=== PATIENT | female | born 1980 | race Caucasian/White ===

== ENCOUNTER 2016-10-24 12:41 | Observation (INO) ==
[2016-10-24] MEDS ORDERED: Naloxone 0.4 MG/ML INJ IVP PRN (14:19)
[2016-10-24] MEDS ORDERED: 0.9 % Sodium Chloride 1,000 ML IVC ONE (14:30)
[2016-10-24] MEDS ORDERED: Pantoprazole 80 MG in 0.9 % Sodium Chloride 50 ML IVPB ONE (14:37)
[2016-10-24] MEDS ORDERED: Pantoprazole 40 MG in 0.9 % Sodium Chloride Mini Bag 100 ML IVC SCH (14:45)
[2016-10-24 14:58] LABS: Basophils % 0.2 %; Eosinophils # 0.1 K/mcL (0.0-0.6); Eosinophils % 1.9 %; Hematocrit 20.5 % (35.3-44.9); Immature Granulocytes % 0.2 % (0-4); Lymphocytes # 2.1 K/mcL (0.6-4.6); Mean Corpuscular HGB Conc 30.2 g/dL (31.6-35.5); Mean Corpuscular Hemoglobin 22.9 pg (28.0-33.3); Mean Corpuscular Volume 75.6 fL (83.0-100.0); Mean Platelet Volume 10.6 fL (9.4-12.4); Monocytes # 0.3 K/mcL (0.0-1.3); Monocytes % 5.8 %; Neutrophils # 3.3 K/mcL (1.6-8.9); Platelet Count 234 K/mcL (140-400); Red Blood Count 2.71 M/mcL (3.82-4.97); Red Cell Distribution Width 17.3 % (11.5-14.5); Segmented Neutrophils % 55.9 %
[2016-10-24 15:01] LABS: Hemoglobin 6.2 g/dL (11.5-15.4)
[2016-10-24] MEDS ORDERED: Ondansetron 4 MG/2 ML VIAL IVP PRN ×2 (15:07→15:51)
[2016-10-24 15:15] LABS: Alanine Aminotransferase 13 Units/L (0-55); Albumin 2.8 g/dL (3.5-5.0); Albumin/Globulin Ratio 1.1 (1.1-2.2); Alkaline Phosphatase 85 Units/L (38-126); Aspartate Amino Transferase 18 Units/L (5-34); BUN/Creatinine Ratio 32 (6-26); Bilirubin,Total 0.1 mg/dL (0.2-1.2); Blood Urea Nitrogen 20 mg/dL (7-20); Calcium 8.1 mg/dL (8.6-10.8); Carbon Dioxide 26 mEq/L (19-29); Chloride 107 mEq/L (98-109); Cholesterol 116 mg/dL (< 200); Globulin 2.6 g/dL (2.4-3.5); Glucose 72 mg/dL (70-99); HDL Cholesterol 39 mg/dL (40-59); LDL Cholesterol,Calculated 69 mg/dL (0-99); Magnesium 2.1 mg/dL (1.6-2.6); Osmolality,Calculated 289 (280-300); Sodium 139 mEq/L (136-145); Total Protein 5.4 g/dL (6.0-8.3); Triglycerides 39 mg/dL (< 150); eGFR For African Americans > 60 (> 60); eGFR For Non-African Americans > 60 (> 60)
[2016-10-24] MEDS: Pantoprazole 40 MG in 0.9 % Sodium Chloride Mini Bag 100 ML IVC SCH ×2 (15:59→20:58)
[2016-10-24] MEDS ORDERED: SODIUM CHLORIDE/NAHCO3/KCL/PEG 4,000 ML SOLN.RECON PO ONE (16:13)
[2016-10-24] MEDS ORDERED: Polyethylene Glycol 3350 255 GM POWDER PO PRN (16:14)
[2016-10-24] MEDS: 0.9 % Sodium Chloride 1,000 ML IVC SCH (16:56)
[2016-10-24] MEDS ORDERED: 0.9 % Sodium Chloride 250 ML ONE (18:00)
--- NOTE | 2016-10-24 21:36 | Internal Med History&Physical ---
Date of Encounter: 10/25/16 Time of Encounter: 12:30 Assessment and Plan (1) GI bleed Current visit: Yes Status: Acute Assess: Patient presents with anemia, reports of dizziness/syncopal episodes, Hgb of 7.8 , Hct of 25.9, abdominal pain, and reports of dark blood in stools and toilet for the past week. Hgb 6.2 towards evening. Plan: GI consult ordered and confirmed Clear liquid diet ordered NPO after midnight for a.m. testing GOLYTELY 4,000 bowel prep ordered pre-testing Miralax/Gatorade bowel prep ordered PRN if patient cannot tolerate GOLYTELY protocol Rectal enema PRN if rectal effusion not clear I unit of RBCs ordered Monitor patient Continuous cardiac monitoring ordered EKG ordered Monitor vital signs Falls precautions due to dizziness/syncope Qualifiers: GI bleed type/associated pathology: unspecified gastrointestinal hemorrhage type Qualified Code(s): K92.2 - Gastrointestinal hemorrhage, unspecified (2) Anemia Current visit: Yes Status: Acute Assess: Patient presents with anemia, reports of dizziness/syncopal episodes, Hgb of 7.8 , Hct of 25.9, abdominal pain, and reports of dark blood in stools and toilet for the past week. Hgb 6.2 towards evening. Source of bleeding TBD through EGD and colonoscopy. Plan: GI consult ordered and confirmed I unit of RBCs ordered Monitor patient Continuous cardiac monitoring ordered EKG ordered Monitor vital signs Falls precautions ordered due to dizziness/syncope Qualifiers: Anemia type: iron deficiency Iron deficiency anemia type: unspecified iron deficiency Qualified Code(s): D50.9 - Iron deficiency anemia, unspecified (3) Hematochezia Current visit: Yes Status: Acute Assess: Patient presents with reports of dark blood in stools and toilet for the past week. Suspected GI bleed due to low Hgb (6.2) and Hct (25.9). Plan: GI consult ordered and confirmed Clear liquid diet ordered NPO after midnight for a.m. testing GOLYTELY 4,000 bowel prep ordered pre-testing Miralax/Gatorade bowel prep ordered PRN if patient cannot tolerate GOLYTELY protocol Rectal enema PRN if rectal effusion not clear I unit of RBCs ordered Patient to undergo EGD and colonoscopy in a.m. (10/25/16) Monitor patient Continuous cardiac monitoring ordered Monitor vital signs (4) Suicidal ideation Current visit: Yes Status: Acute Assess: Patient presents from psychiatric unit today with suicidal ideations and auditory hallucinations. Plan: Sitter ordered Psych to follow patient Suicide protocol per unit Monitor patient's affect, mood Monitor vital signs (5) Acute psychosis Current visit: Yes Status: Acute Assess: Patient presents from psychiatric unit today with suicidal ideations, homicidal ideations, and auditory hallucinations. Plan: Sitter ordered Psych to follow patient Monitor patient's affect, mood Monitor vital signs Monitor sleep Monitor appetite (6) DVT prophylaxis Current visit: Yes Status: Acute Assess: Patient placed on DVT prophylaxis due to current inpatient status, history of anemia, abnormal EKG (arrhythmia) and episodes of dizziness/syncope Plan: SCD pumps ordered EKG ordered Continuous cardiac monitoring Monitor vital signs Internal Medicine - H&P: HPI Chief complaint: GI bleed Admitted From: Intrahospital Transfer Plans for Post Hospital Care: Home History of present illness: Ms. Long is a 36 year old female who was being seen in the psychiatric unit for suicidal ideations, auditory hallucinations, and psychosis. Patient's lab results showed a Hgb of 7.8 and Hct of 25.9. When assessed, patient reported that she has been experiencing episodes of dizziness and syncope, pain in her epigastric area for the past month, and dark blood in her stool for the past week. Patient was admitted to med/surg for GI bleed work-up. GI consult ordered and confirmed with Dr. Pierre who requested patient be placed on clear liquids and then NPO after midnight with bowel prep to be completed for a.m. testing ( EGD and colonoscopy). Continuoius cardiac monitoring ordered. Hgb and Hct ordered q6. Patient's Hgb was 8.7 on 10/23 and is now 6.2 on 10/24. Patient to receive one unit of blood. IV Protonix and bolus ordered as well. Past Med Surg Social Fam HX - Past Medical History Medical history: cancer (Cervical), other Psychiatric history: no psych history - Past Surgical History Surgical History: hysterectomy, other (Oophorectomy) - Social History Smoking Status: Current every day smoker Smokeless Tobacco Status: No Alcohol use: none Drug use: cocaine, marijuana - Family History Mother Race: Family Member Ethnicity: Non- Living Status: Still Living Hx Family Cancer: Yes Father History Unknown: Yes Sister Race: Family Member Ethnicity: Non- Living Status: Still Living Hx Family Medical Disorders: No Brother Race: Family Member Ethnicity: Non- Living Status: Still Living Hx Family Medical Disorders: No Internal Medicine - H&P: Meds No Known Home Drugs 10/22/16 [History] Allergies Sulfa (Sulfonamide Antibiotics) Allergy (Mild, Verified 10/22/16 01:33) Anaphylaxis aspirin [ASA] Allergy (Verified 10/23/16 16:25) Rash ibuprofen Allergy (Verified 10/23/16 16:25) Rash Penicillins Allergy (Verified 10/22/16 01:33) Anaphylaxis tetanus toxoid, adsorbed Allergy (Verified 10/23/16 16:25) Rash tramadol Allergy (Verified 10/23/16 16:25) Rash trazodone Allergy (Verified 10/23/16 16:25) Rash All Systems PM: A 10-system review of systems was performed and is negative for pertinent findings except as documented above in the HPI. - Constitutional Constitutional: no chills, no fever(s), no night sweats - EENT Eyes: no change in vision, no discharge, no pain, no photophobia Ears: no ear discharge, no ear pain, no tinnitus Nose, mouth and throat: no dysphagia, no nasal discharge, no neck pain, no sore throat - Breasts Breasts: as per HPI - Cardiovascular Cardiovascular ROS IM: as per HPI, lightheadedness, syncope, no chest pain, no diaphoresis, no dyspnea, no palpitations - Respiratory Respiratory: no cough, no dyspnea, no wheezing, no excessive phlegm production - Gastrointestinal Gastrointestinal: as per HPI, abdominal pain, hematochezia - Genitourinary Genitourinary: as per HPI Additional comments: Patient reports no menstrual periods due to hysterectomy. Total hysterectomy and oophorectomy performed due to cervical cancer diagnosis. Menstruation: post hysterectomy Additional comments: Patient reports no menstrual periods due to hysterectomy. Total hysterectomy and oophorectomy performed due to cervical cancer diagnosis. - Musculoskeletal Musculoskeletal ROS IM: no numbness, no tingling - Integumentary Integumentary IM: no rash, no unusual bruising - Neurological Neurological ROS: as per HPI, dizziness Additional comments: Patient reports episodes of dizziness and syncope. - Psychiatric Psychiatric: as per HPI, auditory hallucinations, behavioral changes, suicidal ideation - Endocrine Endocrine IM: as per HPI - Hematologic/Lymphatic Hematologic/Lymphatic: as per HPI, no easy bruising - Allergic/Immunologic Allergic/Immunologic: as per HPI - Constitutional Vitals: Temp Pulse Resp BP Pulse Ox 98.3 F 60 16 90/52 100 10/24/16 18:56 10/24/16 18:56 10/24/16 18:56 10/24/16 18:56 10/24/16 18:41 General appearance: Present: cooperative, A&O X 3, pleasant, answers questions appropriately - Head Head exam: Present: atraumatic, normocephalic - Eye Eye exam: Present: PERRL, conjuntiva pink, sclera anicteric Pupils: Present: PERRL - ENT ENT exam: Present: normal exam - Neck Neck exam general surgery: Present: supple, trachea midline. Absent: lymphadenopathy - Respiratory Respiratory exam: Present: CTAB. Absent: accessory muscle use, rales, rhonchi, wheezes - Cardiovascular Cardiovascular exam: Present: RRR, +S1, +S2. Absent: diastolic murmur, gallop, rubs, systolic murmur - GI/Abdominal GI/Abdominal exam: Present: normal bowel sounds - Rectal Rectal exam: Present: deferred - Additional comments: exam deferred. - Extremities Exam Extremities exam: Present: warm, radial pulses palpable and symetrical. Absent : calf tenderness, cyanotic, pedal edema - Back Exam Back exam: Present: normal inspection - Neurological Exam Neurological exam: Present: alert, oriented X3, no focal deficits - Psychiatric Psychiatric exam: Present: normal affect, normal mood - Skin Skin exam: Present: dry, intact Internal Med - H&P Results - Labs CBC & Chem 7: 10/25/16 06:31 10/25/16 06:31 Labs: Short CBC 10/24/16 Range/Units 14:34 WBC 5.9 (4.3-11.1) K/mcL Hgb 6.2 L D (11.5-15.4) g/dL Hct 20.5 L (35.3-44.9) % Plt Count 234 (140-400) K/mcL Neutrophils # 3.3 (1.6-8.9) K/mcL BMP 10/24/16 14:34 Sodium 139 Potassium 4.0 Chloride 107 Carbon Dioxide 26 BUN 20 Creatinine 0.62 Glucose 72 Calcium 8.1 L Liver Function 10/24/16 Range/Units 14:34 Total Bilirubin 0.1 L (0.2-1.2) mg/dL AST 18 (5-34) Units/L ALT 13 (0-55) Units/L Alkaline Phosphatase 85 (38-126) Units/L Albumin 2.8 L (3.5-5.0) g/dL - EKG Data EKG shows normal: sinus rhythm (with sinus arrhythmia) - VTE Reasons for not Prescribing Prophylaxis: Medical contraindication
[2016-10-24 22:48] LABS: Hematocrit 25.1 % (35.3-44.9)
[2016-10-24 22:52] LABS: Hemoglobin 7.8 g/dL (11.5-15.4)
[2016-10-25] MEDS: Pantoprazole 40 MG in 0.9 % Sodium Chloride Mini Bag 100 ML IVC SCH ×3 (02:00→13:07)
[2016-10-25 06:39] LABS: Basophils % 0.2 %; Eosinophils # 0.1 K/mcL (0.0-0.6); Eosinophils % 2.3 %; Hemoglobin 8.1 g/dL (11.5-15.4); Immature Granulocytes % 0.2 % (0-4); Lymphocytes % 41.4 %; Mean Corpuscular HGB Conc 31.2 g/dL (31.6-35.5); Mean Corpuscular Hemoglobin 24.5 pg (28.0-33.3); Mean Corpuscular Volume 78.5 fL (83.0-100.0); Mean Platelet Volume 10.3 fL (9.4-12.4); Monocytes # 0.3 K/mcL (0.0-1.3); Monocytes % 6.8 %; Neutrophils # 2.3 K/mcL (1.6-8.9); Platelet Count 244 K/mcL (140-400); Red Blood Count 3.31 M/mcL (3.82-4.97); Red Cell Distribution Width 16.7 % (11.5-14.5); Segmented Neutrophils % 49.1 %
[2016-10-25 06:42] LABS: INR 1.1
[2016-10-25 06:51] LABS: BUN/Creatinine Ratio 21 (6-26); Blood Urea Nitrogen 12 mg/dL (7-20); Carbon Dioxide 23 mEq/L (19-29); Chloride 112 mEq/L (98-109); Glucose 80 mg/dL (70-99); Magnesium 1.6 mg/dL (1.6-2.6); Osmolality,Calculated 289 (280-300); Potassium 4.3 mEq/L (3.5-4.5); Sodium 140 mEq/L (136-145); eGFR For African Americans > 60 (> 60); eGFR For Non-African Americans > 60 (> 60)
--- NOTE | 2016-10-25 07:33 | General Surgery Consult Note ---
Date of Encounter: 10/25/16 Time of Encounter: 07:30 Assessment and Plan (1) GI bleed Current Visit: Yes Status: Acute The patient has had a significant hemoglobin drop and now presents for EGD and colonoscopy. She brings to my attention today that she has had previous gastric resection, colon resection, small bowel resection at another hospital. I do not have access to these records. We will proceed with EGD and colonoscopy today to define the anatomy and try and find a bleeding source as the cause for her anemia Qualifiers: GI bleed type/associated pathology: unspecified gastrointestinal hemorrhage type Qualified Code(s): K92.2 - Gastrointestinal hemorrhage, unspecified History of Present Illness Consult date: 10/25/16 Reason for consult: other (Anemia and central abdominal pain) History of present illness: I was contacted by the emergency room last night about profound anemia in a 36- year-old female. She had had a significant hemoglobin drop down to 7.4. During the discussion physicians failed to mention that she had had extensive surgical resection of her stomach small bowel and colon 2 years ago. Her main complaint is central abdominal pain. She has had all of her surgical therapy at [facility]. We will consult to provide upper and lower endoscopic evaluation of the gastrointestinal tract for signs of bleeding. She has previously had a gastric resection of unknown type. She has previously had colon resection of unknown type. She underwent bowel prep overnight and we will proceed with EGD and colonoscopy. Past Med Surg Social Fam HX - Past Medical History Medical history: cancer (Cervical), other Psychiatric history: no psych history - Past Surgical History Surgical History: colectomy, hysterectomy, other (Oophorectomy, the patient has had extensive bowel surgery with both gastric and colon resection and possibly small bowel.) - Social History Smoking Status: Current every day smoker Smokeless Tobacco Status: No Alcohol use: none Drug use: cocaine, marijuana - Family History Mother Race: Family Member Ethnicity: Non- Living Status: Still Living Hx Family Cancer: Yes Father History Unknown: Yes Sister Race: Family Member Ethnicity: Non- Living Status: Still Living Hx Family Medical Disorders: No Brother Race: Family Member Ethnicity: Non- Living Status: Still Living Hx Family Medical Disorders: No Medications and Allergies No Known Home Drugs 10/22/16 [History] Allergies Sulfa (Sulfonamide Antibiotics) Allergy (Mild, Verified 10/22/16 01:33) Anaphylaxis aspirin [ASA] Allergy (Verified 10/23/16 16:25) Rash ibuprofen Allergy (Verified 10/23/16 16:25) Rash Penicillins Allergy (Verified 10/22/16 01:33) Anaphylaxis tetanus toxoid, adsorbed Allergy (Verified 10/23/16 16:25) Rash tramadol Allergy (Verified 10/23/16 16:25) Rash trazodone Allergy (Verified 10/23/16 16:25) Rash Review of Systems All systems PM: A 10-system review of systems was performed and is negative for pertinent findings except as documented above in the HPI. General Surgery Exam Initial Vital Signs Temp Pulse Resp BP Pulse Ox 98.4 F 64 17 95/59 95 10/24/16 14:13 10/24/16 14:13 10/24/16 14:13 10/24/16 14:13 10/24/16 14:13 - General physical appearance well developed, well nourished, no distress, cachectic, chronically ill - Respiratory normal expansion, normal respiratory effort, clear to percussion, clear to auscultation - Cardiovascular Cardiovascular exam: Present: RRR, no murmurs/rubs/gallops - Abdomen Abdomen general surgery: Present: bowel sounds present, soft, tender Abdominal Tenderness: Present: epigastic (Well-healed midline surgical scar from xiphoid to pubis) - Neurologic Present: CN 2-12 grossly intact, normal coordination, normal sensation - Psychiatric Psychiatric general surgery: Present: appropriate, oriented to person, oriented to place, oriented to time, speech is normal, memory intact Exam Initial Vital Signs Temp Pulse Resp BP Pulse Ox 98.4 F 64 17 95/59 95 10/24/16 14:13 10/24/16 14:13 10/24/16 14:13 10/24/16 14:13 10/24/16 14:13 Results - Labs 10/25/16 06:31 10/25/16 06:31 Abnormal lab results RBC 3.31 M/mcL (3.82-4.97) L 10/25/16 06:31 Hgb 8.1 g/dL (11.5-15.4) L 10/25/16 06:31 Hct 26.0 % (35.3-44.9) L 10/25/16 06:31 MCV 78.5 fL (83.0-100.0) L 10/25/16 06:31 MCH 24.5 pg (28.0-33.3) L 10/25/16 06:31 MCHC 31.2 g/dL (31.6-35.5) L 10/25/16 06:31 RDW 16.7 % (11.5-14.5) H 10/25/16 06:31 Chloride 112 mEq/L (98-109) H 10/25/16 06:31 Calcium 8.0 mg/dL (8.6-10.8) L 10/25/16 06:31 Total Bilirubin 0.1 mg/dL (0.2-1.2) L 10/24/16 14:34 Serum Total Protein 5.4 g/dL (6.0-8.3) L 10/24/16 14:34 Albumin 2.8 g/dL (3.5-5.0) L 10/24/16 14:34 HDL Cholesterol 39 mg/dL (40-59) L 10/24/16 14:34 Diabetes panel 10/24/16 10/25/16 Range/Units 14:34 06:31 Sodium 139 140 (136-145) mEq/L Potassium 4.0 4.3 (3.5-4.5) mEq/L Chloride 107 112 H (98-109) mEq/L Carbon Dioxide 26 23 (19-29) mEq/L BUN 20 12 (7-20) mg/dL Creatinine 0.62 0.58 (0.57-1.11) mg/dL Glucose 72 80 (70-99) mg/dL Calcium 8.1 L 8.0 L (8.6-10.8) mg/dL AST 18 (5-34) Units/L ALT 13 (0-55) Units/L Alkaline Phosphatase 85 (38-126) Units/L Albumin 2.8 L (3.5-5.0) g/dL Triglycerides 39 (< 150) mg/dL HDL Cholesterol 39 L (40-59) mg/dL Calcium panel 10/24/16 10/25/16 Range/Units 14:34 06:31 Calcium 8.1 L 8.0 L (8.6-10.8) mg/dL Albumin 2.8 L (3.5-5.0) g/dL Pituitary panel 10/24/16 10/25/16 Range/Units 14:34 06:31 Sodium 139 140 (136-145) mEq/L Potassium 4.0 4.3 (3.5-4.5) mEq/L Chloride 107 112 H (98-109) mEq/L Carbon Dioxide 26 23 (19-29) mEq/L BUN 20 12 (7-20) mg/dL Creatinine 0.62 0.58 (0.57-1.11) mg/dL Glucose 72 80 (70-99) mg/dL Calcium 8.1 L 8.0 L (8.6-10.8) mg/dL Adrenal panel 10/24/16 10/25/16 Range/Units 14:34 06:31 Sodium 139 140 (136-145) mEq/L Potassium 4.0 4.3 (3.5-4.5) mEq/L Chloride 107 112 H (98-109) mEq/L Carbon Dioxide 26 23 (19-29) mEq/L BUN 20 12 (7-20) mg/dL Creatinine 0.62 0.58 (0.57-1.11) mg/dL Glucose 72 80 (70-99) mg/dL Calcium 8.1 L 8.0 L (8.6-10.8) mg/dL Total Bilirubin 0.1 L (0.2-1.2) mg/dL AST 18 (5-34) Units/L ALT 13 (0-55) Units/L Alkaline Phosphatase 85 (38-126) Units/L Albumin 2.8 L (3.5-5.0) g/dL All other labs normal. Consult Discharge Plan - Plan Referrals: NO,PCP [Primary Care Provider] -
[2016-10-25] MEDS ORDERED: *HR* Midazolam HCl 5 MG/5 ML VIAL IVP ONE (09:15)
[2016-10-25] MEDS ORDERED: *HR* FentaNYL (PF) 100 MCG/2 ML VIAL ONE (09:16)
[2016-10-25] MEDS ORDERED: Tetracaine/Benzocaine/Butamben 200MG/SPRAY (100SPY/BOT) MM ONE (09:20)
[2016-10-25] MEDS ORDERED: Simethicone 40 MG/0.6 ML MLS IR ONE (09:20)
--- NOTE | 2016-10-25 09:20 | Pre-Sedation Evaluation ---
Pre-sedation evaluation - Pre-sedation checklist Date of procedure: 10/25/16 Procedure: EGD, Colonoscopy Recent Vitals: Last Vital Signs Temp 98.9 F 10/25/16 08:52 Pulse 68 10/25/16 08:52 Resp 17 10/25/16 08:52 BP 119/94 10/25/16 08:52 Pulse Ox 99 10/25/16 08:52 H&P (including ROS) documented in medical record: Yes Previous reaction to sedatives/anesthetics: No Dietary Status: NPO after Midnight Airway Assessment: Patient can open mouth completely, TMJ function normal Dentition: No loose teeth or bridges Possible difficult airway: No ASA Classification *see protocol: CLASS III-Severe systemic disease Plan of Care: Pt appropriate candidate for procedure/moderate/conscious sedation , Risks/benefits of procedure/sedation discussed w/ patient/family
[2016-10-25] MEDS: *HR* FentaNYL (PF) 100 MCG/2 ML VIAL IVP PRN ×2 (09:25→09:27)
[2016-10-25] MEDS: *HR* Midazolam HCl 5 MG/5 ML VIAL IVP PRN ×3 (09:26→09:28)
[2016-10-25] MEDS ORDERED: 0.9 % Sodium Chloride 500 ML IVC SCH (09:30)
--- NOTE | 2016-10-25 09:36 | Internal Med Progress Note ---
<Varghese Borjas - Last Filed: 10/25/16 16:09> Date of Encounter: 10/25/16 Time of Encounter: 09:32 - Assessment and plan (1) GI bleed Current Visit: Yes Status: Acute Assessment and plan: Patient was found to be anemic with reported dizziness and syncopal episodes upon admission, original hemoglobin was 7.8 with associated abdominal pain. Patient reported dark tarry stools and bright red blood per rectum one week ago without symptoms or signs in the past week. Hemoglobin was found to be 6.2 upon laboratory redraw. MCV 78.5. Microcytic anemia secondary to blood loss. Concerns for upper GI bleed, also considering malabsorption with history of significant gastric and abdominal surgeries. - GI consult was placed and patient is to undergo endoscopy and colonoscopy. - Completing bowel prep. - Received 1 unit PRBCs with current hemoglobin 8.1 - Continue cardiac monitoring - Patient on fall precautions secondary to dizziness and reported syncopal episode. - We will continue to monitor hemoglobin with repeat hemoglobin level in 6 hours. - B12 and folate, UDS ordered. Qualifiers: GI bleed type/associated pathology: unspecified gastrointestinal hemorrhage type Qualified Code(s): K92.2 - Gastrointestinal hemorrhage, unspecified (2) Anemia Current Visit: Yes Status: Acute Assessment and plan: Hemoglobin 6.2, 8.1 after 1 unit PRBC transfusion with MCV 78.5. Microcytic anemia secondary to blood loss. Concerns for upper GI bleed, also considering malabsorption with history of significant gastric and abdominal surgeries. - Patient states previous GI surgeries completed by Dr. Mar in [place]. Plan: - Hemoglobin and hematocrit in 6 hours - We will check B12 and folic acid - Iron studies - will need supplemental iron by mouth at the time of discharge - Primary care provider follow-up at time of discharge. Qualifiers: Anemia type: iron deficiency Iron deficiency anemia type: unspecified iron deficiency Qualified Code(s): D50.9 - Iron deficiency anemia, unspecified (3) Acute psychosis Current Visit: Yes Status: Acute Assessment and plan: Patient presented from psych unit with suicidal ideations, homicidal ideations and auditory hallucinations. - Upon examination today the patient presented very pleasant and made no mention of auditory hallucinations or suicidal ideations. 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 Plan: - Continue sitter - Patient will need to continue with psychiatry. (4) Suicidal ideation Current Visit: Yes Status: Acute Assessment and plan: As above. (5) DVT prophylaxis Current Visit: Yes Status: Acute Assessment and plan: Patient has RUBEN stockings. No anticoagulation with microcytic anemia and possible GI bleed. - Subjective Interval history: Mrs. Long 36 yo F seen and evaluated patient bedside this morning. She is alert awake interactive oriented 3 in no acute distress. She has tolerated bowel prep this morning prior to endoscopy and colonoscopy. Denies any blood per rectum noticed. Last bout of black tarry stool and blood per rectum was 1 week ago. Her blood per rectum one week ago was not concerning because she said she had other obligations as a mother and . She denies any noticeable dark tarry stools or blood per rectum in the preceding week to admission. She has had diffuse abdominal discomfort for 6 months exacerbated with eating and without relief from Tums, T[place] or other medications. In discussion of her previous abdominal surgeries she had a hysterectomy in 2003 secondary to cervical cancer and has not followed up with vaginal examinations or with her primary care physician. In regards to her GI surgeries she said her stomach had absent transit 5 years ago and she underwent major gastric surgery and at that time had partial colectomy. She is unsure of the diagnosis or any preceding events, that may have led up to the surgeries. Her diet has been poor and occasional nausea and vomiting. Today she says she feels stable and is awaiting her endoscopy and colonoscopy. - Constitutional Vitals: Temp Pulse Resp BP Pulse Ox 98.9 F 64 16 92/59 100 10/25/16 08:52 10/25/16 09:26 10/25/16 09:26 10/25/16 09:26 10/25/16 09:26 General appearance: Present: cooperative, A&O X 3, pleasant, answers questions appropriately Exam: Very thin 36-year-old female - Head Head exam: Present: atraumatic, normocephalic - Eye Eye exam: Present: PERRL, conjuntiva pink, sclera anicteric Pupils: Present: PERRL - ENT ENT exam: Present: mucous membranes moist - Neck Neck exam general surgery: Present: supple, trachea midline. Absent: lymphadenopathy - Respiratory Respiratory exam: Present: CTAB. Absent: accessory muscle use, rales, rhonchi, wheezes - Cardiovascular Cardiovascular exam: Present: RRR, +S1, +S2. Absent: diastolic murmur, gallop, rubs, systolic murmur Additional comments: Radial pulses 2+ bilateral - GI/Abdominal GI/Abdominal exam: Present: normal bowel sounds, soft, no peritoneal signs. Absent: distended, firm, guarding, tenderness Additional comments: Abdomen demonstrates old abdominal surgery scars., No organomegaly appreciated upon examination. - Extremities Exam Extremities exam: Present: warm, radial pulses palpable and symetrical. Absent : calf tenderness, cyanotic, pedal edema Additional comments: Poor muscle distribution diffusely. - Neurological Exam Neurological exam: Present: alert, oriented X3, no focal deficits. Absent: pronater drift, facial droop, speech deficit - Psychiatric Psychiatric exam: Present: normal affect, normal mood Internal Medicine: Result - Labs CBC & Chem 7: 10/25/16 12:12 10/25/16 06:31 Labs: Short CBC 10/24/16 10/24/16 10/25/16 Range/Units 14:34 22:25 06:31 WBC 5.9 4.7 (4.3-11.1) K/mcL Hgb 6.2 L D 7.8 L D 8.1 L (11.5-15.4) g/dL Hct 20.5 L 25.1 L 26.0 L (35.3-44.9) % Plt Count 234 244 (140-400) K/mcL Neutrophils # 3.3 2.3 (1.6-8.9) K/mcL BMP 10/24/16 10/25/16 14:34 06:31 Sodium 139 140 Potassium 4.0 4.3 Chloride 107 112 H Carbon Dioxide 26 23 BUN 20 12 Creatinine 0.62 0.58 Glucose 72 80 Calcium 8.1 L 8.0 L Liver Function 10/24/16 Range/Units 14:34 Total Bilirubin 0.1 L (0.2-1.2) mg/dL AST 18 (5-34) Units/L ALT 13 (0-55) Units/L Alkaline Phosphatase 85 (38-126) Units/L Albumin 2.8 L (3.5-5.0) g/dL - ABG Interpretation ABG results: PT/INR, D-dimer PT 12.0 Seconds (9.4-12.1) 04/23/17 06:31 - VTE Reasons for not Prescribing Prophylaxis: Medical contraindication Documentation of Mechanical Device: Graduated compression elastic hosiery Consult Discharge Plan - Plan Instructions: Anemia (GEN) Additional Instructions: take your medications as prescribed Check your hgb Lab work on November 04 Follow up with PCP in the next 3-5 days Patient states she will follow up with her out of hospital surgeon. Referrals: NO,PCP [Primary Care Provider] - Prescriptions: Ascorbic Acid [Vitamin C] 100 mg PO BID #60 tablet Ferrous Sulfate [Iron] 325 mg PO BID #60 tablet Vit/Iron Fumarate/FA [ Tablet] 1 each PO DAILY #30 tablet <Trisha Vasquez - Last Filed: 10/25/16 17:34> Date of Encounter: 10/25/16 - Constitutional Vitals: Temp Pulse Resp BP Pulse Ox 98.6 F 71 18 102/93 100 10/25/16 14:30 10/25/16 14:30 10/25/16 14:30 10/25/16 14:30 10/25/16 14:30 Internal Medicine: Result - Labs CBC & Chem 7: 10/25/16 12:12 10/25/16 06:31 Labs: Short CBC 10/24/16 10/25/16 10/25/16 Range/Units 22:25 06:31 12:12 WBC 4.7 (4.3-11.1) K/mcL Hgb 7.8 L D 8.1 L 8.3 L (11.5-15.4) g/dL Hct 25.1 L 26.0 L 27.1 L (35.3-44.9) % Plt Count 244 (140-400) K/mcL Neutrophils # 2.3 (1.6-8.9) K/mcL BMP 10/25/16 06:31 Sodium 140 Potassium 4.3 Chloride 112 H Carbon Dioxide 23 BUN 12 Creatinine 0.58 Glucose 80 Calcium 8.0 L - ABG Interpretation ABG results: PT/INR, D-dimer PT 12.0 Seconds (9.4-12.1) 10/25/16 06:31 - Attending Attestation I examined this patient and reviewed laboratory, imaging and all diagnostic data. My medical decision-making was reviewed with Dr Borjas - Resident Physician. I agree with the documented findings, disposition and treatment plan as described above
[2016-10-25 10:28] LABS: % Iron Saturation 7 % (15-50); Iron 24 mcg/dL (50-170); Transferrin 253 mg/dL (180-382)
[2016-10-25 10:47] LABS: Ferritin 2 ng/ml (5-204)
[2016-10-25] MEDS: 0.9 % Sodium Chloride 1,000 ML IVC SCH (11:12)
[2016-10-25] MEDS ORDERED: Iron Sucrose Complex 400 MG in 0.9 % Sodium Chloride 250 ML IVPB ONE (11:39)
[2016-10-25 12:33] LABS: Hematocrit 27.1 % (35.3-44.9); Hemoglobin 8.3 g/dL (11.5-15.4)
[2016-10-25 13:21] LABS: Folate 6.9 ng/mL (7.0-31.4)
[2016-10-25] MEDS ORDERED: Folic Acid 1 MG in D5% in Water 50 ML IVPB STA (15:20)
--- NOTE | 2016-10-25 15:25 | Discharge Summary ---
<Varghese Borjas - Last Filed: 10/25/16 16:10> Date of Encounter: 10/25/16 Time of Encounter: 15:19 - Discharge Diagnosis (1) GI bleed Priority: Primary Status: Acute Qualifiers: GI bleed type/associated pathology: unspecified gastrointestinal hemorrhage type Qualified Code(s): K92.2 - Gastrointestinal hemorrhage, unspecified (2) Anemia Priority: Primary Status: Acute Qualifiers: Anemia type: iron deficiency Iron deficiency anemia type: unspecified iron deficiency Qualified Code(s): D50.9 - Iron deficiency anemia, unspecified (3) Acute psychosis Priority: Secondary Status: Acute (4) Suicidal ideation Priority: Secondary Status: Acute - Discharge Medications Prescriptions: Ascorbic Acid [Vitamin C] 100 mg PO BID #60 tablet Ferrous Sulfate [Iron] 325 mg PO BID #60 tablet Vit/Iron Fumarate/FA [ Tablet] 1 each PO DAILY #30 tablet Home Medications: Ascorbic Acid [Vitamin C] 100 mg PO BID #60 tablet 10/25/16 [Rx] Ferrous Sulfate [Iron] 325 mg PO BID #60 tablet 10/25/16 [Rx] Vit/Iron Fumarate/FA [ Tablet] 1 each PO DAILY #30 tablet 10/25 [Rx] Allergies/Adverse Reactions: Allergies Sulfa (Sulfonamide Antibiotics) Allergy (Mild, Verified 10/22/16 01:33) Anaphylaxis aspirin [ASA] Allergy (Verified 10/23/16 16:25) Rash ibuprofen Allergy (Verified 10/23/16 16:25) Rash Penicillins Allergy (Verified 10/22/16 01:33) Anaphylaxis tetanus toxoid, adsorbed Allergy (Verified 10/23/16 16:25) Rash tramadol Allergy (Verified 10/23/16 16:25) Rash trazodone Allergy (Verified 10/23/16 16:25) Rash Procedures/tests Complete & Pending: Procedures Performed prior 72 hours Category Date Time Status ECG 12 lead ECG [ECG] Routine Y 10/24/16 14:19 Completed Date of admission: 10/24/16 14:10 Primary care physician: PCP NO Consults: 10/24/16 14:32 Consult to Gastroenterology [CONS] Routine Consulting Provider: Gastroenterology [place] Reason for Consult: Possible GI bleed Call Completed: Yes 10/25/16 14:45 Consult to Psychiatry [CONS] Stat Consulting Provider: Psychiatry [place] Reason for Consult: Transfered from [facility], need to know if patient is cleared for discharge. Pt has sitter. Call Completed: Yes Discharging clinician: Varghese Borjas Anticipated date of discharge: 10/25/16 - Patient Status Disposition: Transfer Psychiatric Hosp Condition: Good Functional capacity at discharge: independent ambulation Overall status at discharge: patient is progressing back to baseline - Discharge Instructions Instructions: Anemia (GEN) Follow Up With: NO,PCP [Primary Care Provider] - Additional Instructions: take your medications as prescribed Check your hgb Lab work on November 04 Follow up with PCP in the next 3-5 days Patient states she will follow up with her out of hospital surgeon. - Diet and Activity Activity: increase activity as tolerated Diet: advance to your usual diet Interval History: Mrs. Long 36 yo F with pmh of multiple gastric surgeries, cervical cancer with history of total hysterectomy. She presents to the hospital was 6 months abdominal pain, blood per rectum one week prior. She was found to have acute psychosis and suicidal ideations and admitted to . upon admission to she was found to have microcytic anemia severe and transferred to the general medical floor. She was transfused 1 unit PRBCs placed on a Protonix drip and gastroenterology was consult that. She underwent bowel prep prior to procedure. She underwent EGD and colonoscopy with exploratory of anatomy with previous history of GI surgeries and without any findings of bleeding. She was transferred back to general medical floor hemoglobin went from 8.1 to 8.3 on recheck. Patient remains stable. Folic acid was low at 6.9 replaced IV, iron studies demonstrated an iron of 24, percent saturation 7, transferred 253, ferritin 2. She was transfused 400 mg IV iron. She was deemed stable for discharge with follow-up with personal (out of hospital) surgeon and primary care provider. Scripts were sent to her pharmacy electronically for vitamin high and folate, vitamin C to take with iron supplementation twice a day. Spoke with psychiatry who recommended transferring the patient back to for psychiatric clearance prior to discharge. Hospital course: Ms. Long is a 36 year old female - Time Spent with Patient Total time spent providing and/or coordinating discharge services: - Constitutional Vitals: Temp Pulse Resp BP Pulse Ox 98.0 F 61 16 97/63 98 10/25/16 11:00 10/25/16 11:00 10/25/16 11:00 10/25/16 11:00 10/25/16 11:00 General appearance: Present: cooperative, A&O X 3, pleasant, answers questions appropriately Exam: thin body habits - Head Head exam: Present: atraumatic, normocephalic - Eye Eye exam: Present: PERRL, conjuntiva pink, sclera anicteric Pupils: Present: PERRL - ENT ENT exam: Present: mucous membranes moist - Neck Neck exam general surgery: Present: supple, trachea midline. Absent: lymphadenopathy - Respiratory Respiratory exam: Present: CTAB. Absent: accessory muscle use, rales, rhonchi, wheezes - Cardiovascular Cardiovascular exam: Present: RRR, +S1, +S2. Absent: diastolic murmur, gallop, rubs, systolic murmur - GI/Abdominal GI/Abdominal exam: Present: normal bowel sounds, soft, no peritoneal signs. Absent: distended, tenderness - Extremities Exam Extremities exam: Present: warm, radial pulses palpable and symetrical. Absent : calf tenderness, cyanotic, pedal edema - Neurological Exam Neurological exam: Present: alert, oriented X3, no focal deficits. Absent: pronater drift, facial droop, speech deficit - Psychiatric Psychiatric exam: Present: normal affect, normal mood - VTE Reasons for not Prescribing Prophylaxis: Medical contraindication Documentation of Mechanical Device: Graduated compression elastic hosiery <Trisha Vasquez E - Last Filed: 10/25/16 17:37> Date of Encounter: 10/25/16 Procedures/tests Complete & Pending: Procedures Performed prior 72 hours Category Date Time Status ECG 12 lead ECG [ECG] Routine Y 10/24/16 14:19 Completed Date of admission: 10/24/16 14:10 Primary care physician: PCP NO Consults: 10/24/16 14:32 Consult to Gastroenterology [CONS] Routine Consulting Provider: Gastroenterology [place] Reason for Consult: Possible GI bleed Call Completed: Yes 10/25/16 14:45 Consult to Psychiatry [CONS] Stat Consulting Provider: Psychiatry [place] Reason for Consult: Transfered from psych, need to know if patient is cleared for discharge. Pt has sitter. Call Completed: Yes Hospital course: Ms. Long is a 36 year old female - Time Spent with Patient Total time spent providing and/or coordinating discharge services: - Constitutional Vitals: Temp Pulse Resp BP Pulse Ox 98.6 F 71 18 102/93 100 10/25/16 14:30 10/25/16 14:30 10/25/16 14:30 10/25/16 14:30 10/25/16 14:30 - Attending Attestation I examined this patient and reviewed laboratory, imaging and all diagnostic data. My medical decision-making was reviewed with Dr Borjas - Resident Physician. I agree with the documented findings, disposition and treatment plan as described above
[2016-10-25] MEDS ORDERED: Folic Acid 1 MG TABLET PO SCH (15:45)
[2016-10-25 16:41] VITALS: BP 102/93
--- NOTE | 2016-10-25 20:30 | Electrocardiograph Report ---
[place] [id number] Test Date: 2016-10-24 Pat Name: Shala Long Department: 113 Room: 3A Gender: F Supervisor Cellars: ARSLAN : 1980 Requested By: Varghese Robin Order Number: [id number] Reading MD: Scout Hooks MD Measurements Intervals [place] Rate: 61 P: 66 WV: 124 QRS: 54 QRSD: 77 T: 57 QT: 437 QTc: 441 Interpretive Statements SINUS RHYTHM Electronically Signed On 10-25-2016 20:29:05 EDT by Scout Hooks MD
== END 2016-10-25 17:50 ==
LOC: 3ANU
PROVIDERS: ADMIT Hospitalist; ATTEND Internal Medicine

== ENCOUNTER 2016-10-25 17:43 | Observation (INO) ==
[2016-10-25] MEDS ORDERED: *HR* LORazepam 2 MG/ML VIAL IM PRN (18:23)
[2016-10-25] MEDS ORDERED: *HR* LORazepam 1 MG TABLET PO PRN (18:23)
[2016-10-25] MEDS ORDERED: Mag Hydrox/Al Hydrox/Simeth 30 ML UDC PO PRN (18:23)
[2016-10-25] MEDS ORDERED: MOM Conc 10 ML UD.LIQ PO PRN (18:23)
[2016-10-25] MEDS ORDERED: hydrOXYzine pamoate 25 MG CAPSULE PO PRN (18:23)
[2016-10-25] MEDS ORDERED: Acetaminophen 325 MG TABLET PO PRN (18:23)
[2016-10-25] MEDS ORDERED: Haloperidol Lactate 5 MG/ML VIAL IM PRN (18:23)
[2016-10-25] MEDS: OLANZapine 5 MG TAB.RAPDIS PO SCH (21:26)
[2016-10-25] MEDS: Ascorbic Acid 500 MG TABLET PO SCH (21:26)
[2016-10-26] MEDS: Folic Acid 1 MG TABLET PO SCH (08:02)
[2016-10-26] MEDS: Ascorbic Acid 500 MG TABLET PO SCH ×2 (08:02→20:07)
[2016-10-26] MEDS: Multivit/Ca/Min/Fe/FA 1 TAB TABLET PO SCH (08:02)
--- NOTE | 2016-10-26 11:01 | Psychiatry History & Physical ---
Date of Encounter: 10/26/16 Time of Encounter: 10:57 History of Present Illness Patient Stated Chief Complaint: Suicidal ideation Medicare Admission Attestation: For traditional Medicare patients the provided hospital inpatient services are reasonable and necessary and in the case of services not specified as inpatient -only under 42 CFR 419.22 (n), that they are appropriately provided as inpatient services in accordance 42 CFR 412.3. For [facility] the patient may reasonably be expected to be discharged or transferred to a hospital within 96 hours after admission to the Critical [facility]. Admitted From: Intrahospital Transfer History of Present Illness: Ms. Long is a 36 year old female readmitted from the medical floor after stabilization and evaluation of her anemia and significant weight loss. Patient had a blood transfusion, endoscopy and colonoscopy and will be followed by GI medicine after discharge. Patient was admitted initially with suicidal ideation and change in mental status auditory hallucinations. Currently she reports feeling better and has more energy. She will continue to take olanzapine and reports improvements in her moods and sleep. Past Med Surg Social Fam HX - Past Medical History Medical history: cancer (Cervical), other - Past Surgical History Surgical History: hysterectomy, other (Oophorectomy) - Social History Smoking Status: Current every day smoker Smokeless Tobacco Status: No Alcohol use: none Drug use: cocaine, marijuana - Family History Mother Family Member Ethnicity: Non- Living Status: Still Living Hx Family Cancer: Yes Sister Family Member Ethnicity: Non- Living Status: Still Living Brother Family Member Ethnicity: Non- Living Status: Still Living Medications & Allergies Ascorbic Acid [Vitamin C] 100 mg PO BID #60 tablet 10/25/16 [Rx] Ferrous Sulfate [Iron] 325 mg PO BID #60 tablet 10/25/16 [Rx] Folic Acid 5 mg PO DAILY 10/25/16 [History] Vit/Iron Fumarate/FA [ Tablet] 1 each PO DAILY #30 tablet 10/25 [Rx] Acetaminophen [Tylenol] 1,000 mg PO Q6HR PRN 10/26/16 [History] Allergies Sulfa (Sulfonamide Antibiotics) Allergy (Mild, Verified 10/22/16 01:33) Anaphylaxis aspirin [ASA] Allergy (Verified 10/23/16 16:25) Rash ibuprofen Allergy (Verified 10/23/16 16:25) Rash Penicillins Allergy (Verified 10/22/16 01:33) Anaphylaxis tetanus toxoid, adsorbed Allergy (Verified 10/23/16 16:25) Rash tramadol Allergy (Verified 10/23/16 16:25) Rash trazodone Allergy (Verified 10/23/16 16:25) Rash Mental Status Exam Patient orientation: Yes Person, Yes Time, Yes Place Level of alertness: Alert Patient appearance: Appropriate, Well Groomed, Thin Behavior: calm, cooperative, talkative Psychomotor activity: Normal Eye contact: Maintains Eye Contact Mood description: Euphoric, Labile Affect description: congruent with mood, labile, euphoric Speech pattern: Normal rate, Normal rhythm, Normal tone Speech volume: Normal Thought process: Linear, Goal Oriented Thought content: No Suicidal ideation, No Homicidal ideation, No Overt delusions Perceptual disturbances: No Auditory hallucinations, No Visual hallucinations Attention span: Capable of Focused Attention Memory description: Grossly Intact Patient reliability: Reliable Historian Intelligence estimate: Average Judgment: Limited Insight: Partial Results - Vital Signs Vital signs: Temp Pulse Resp BP 99 F 75 18 99/49 10/26/16 09:00 10/26/16 09:00 10/26/16 09:00 10/26/16 09:00 Assessment and Plan (1) Acute psychosis Current visit: No Status: Acute Plan: Admit inpatient for safety and stabilization, Close observation, Suicide Precautions per unit protocol, Encourage participation in unit milieu, Group Therapy, Monitor sleep, Monitor appetite Risks, benefits, side effects, alternatives discussed w/pt: Yes Patient agreeable to treatment: Yes
[2016-10-26] MEDS ORDERED: Nicotine 2 MG GUM BC PRN (13:51)
[2016-10-26] MEDS: OLANZapine 5 MG TAB.RAPDIS PO SCH (20:07)
[2016-10-27] MEDS: Multivit/Ca/Min/Fe/FA 1 TAB TABLET PO SCH (08:42)
[2016-10-27] MEDS: Ascorbic Acid 500 MG TABLET PO SCH (08:42)
[2016-10-27 08:57] VITALS: BP 96/53
[2016-10-27] MEDS: Folic Acid 1 MG TABLET PO SCH (09:15)
--- NOTE | 2016-10-27 11:04 | Discharge Summary ---
Date of Encounter: 10/27/16 Time of Encounter: 11:00 Diagnosis - Discharge Diagnosis (1) Acute psychosis Priority: Primary Status: Acute (2) Cocaine abuse Priority: Secondary Status: Acute Medications - Discharge Medications Prescriptions: OLANZapine [Zyprexa Zydis] 5 mg PO HS #30 tab.rapdis Ascorbic Acid [Vitamin C] 100 mg PO BID #60 tablet 10/25/16 [Rx] Ferrous Sulfate [Iron] 325 mg PO BID #60 tablet 10/25/16 [Rx] Folic Acid 5 mg PO DAILY 10/25/16 [History] Vit/Iron Fumarate/FA [ Tablet] 1 each PO DAILY #30 tablet 10/25 [Rx] Acetaminophen [Tylenol] 1,000 mg PO Q6HR PRN 10/26/16 [History] OLANZapine [Zyprexa Zydis] 5 mg PO HS #30 tab.rapdis 10/27/16 [Rx] Allergies Sulfa (Sulfonamide Antibiotics) Allergy (Mild, Verified 10/22/16 01:33) Anaphylaxis aspirin [ASA] Allergy (Verified 10/23/16 16:25) Rash ibuprofen Allergy (Verified 10/23/16 16:25) Rash Penicillins Allergy (Verified 10/22/16 01:33) Anaphylaxis tetanus toxoid, adsorbed Allergy (Verified 10/23/16 16:25) Rash tramadol Allergy (Verified 10/23/16 16:25) Rash trazodone Allergy (Verified 10/23/16 16:25) Rash Provider Date of admission: 10/25/16 17:43 Primary care physician: PCP NO Discharging clinician: Tomer Vaz Assessment and Plan - Patient/Caregiver Discharge Instructions Activity: resume usual activities as tolerated Diet: regular diet - Follow up Plan Follow up with: [facility]Outside[facility] - 11/02/16 8:45 am (The above appointment is with Stefany Chapin. Please arrive 15 minutes early to complete paperwork. Please bring your insurance card, photo ID and medications in their original bottles. If you do not have insurance, bring proof of income to apply for the sliding fee scale. If you are unable to keep this appointment , 24 hour business notice of cancellation is expected. ) [facility] [place] [facility] [Outside] - 11/17/16 3:30 pm (Office staff will contact you directly to schedule your intake appointment for counseling/case management services. You will see psychiatric prescriber, on in the [place], [place] office. That address is [address] in [place]. Your case management assistant can arrange transportation to this appointment for you. Please arrive 30 minutes early for this appointment to complete paperwork. You may contact the office regularly to check for cancellations that may allow you to be seen sooner by the psychiatric prescriber.) Functional capacity at discharge: independent ambulation Overall status at discharge: Stable Disposition: Home, Self-Care Hospital Course Hospital course: Ms. Long is a 36 year old female readmitted to the medical after evaluation and stabilization of anemia. For details of the admission please see H&P On the unit the patient was continued on olanzapine. She displayed improved mood and energy after a blood transfusion and medical stabilization. She participated in activities and denied any hallucination or suicidal ideation, did not present any paranoid delusion and she was future oriented and motivated to take her SELF PHYSICALLY AND MENTALLY. FOLLOW-UP PLANS AT DISCHARGE WERE COMPLETED BY THE SOCIAL WORK. - Time Spent with Patient Total time spent providing and/or coordinating discharge services: Less than 30 minutes Quality - Multiple Antipsychotics Patient discharged on 2 or more antipsychotic medications: No Procedures - Procedures Procedures: Medication Management, Crisis Stabilization, Supportive Therapy, Group Therapy, Psychoeducational Therapy Mental Status Exam - Mental Status Exam Patient orientation: Yes Person, Yes Time, Yes Place Level of alertness: Alert Patient appearance: Appropriate, Well Groomed, Thin Behavior: calm, cooperative Psychomotor activity: Normal Eye contact: Maintains Eye Contact Mood description: Euthymic/stable Affect description: congruent with mood, full range Speech pattern: Normal rate, Normal rhythm, Normal tone Speech Volume: Normal Thought process: Linear, Goal Oriented Thought Content: No Suicidal ideation, No Homicidal ideation, No Overt delusions Perceptual Disturbances: No Auditory hallucinations, No Visual hallucinations Judgment: Limited Insight: Partial
== END 2016-10-27 12:30 | disposition home or self-care (01) ==
LOC: 1ANU 17:43 → INTOOBSV 17:43
PROVIDERS: ADMIT Psychiatry & Neurology Psychiatry; ATTEND Psychiatry & Neurology Psychiatry